=== PATIENT | female | born 1965 | race Caucasian/White ===

== ENCOUNTER → 2022-04-04 | Outpatient (CLI) | payer BC, MEDICARE ==
--- NOTE | 2022-04-04 16:56 | P.SLEEP ---
History of Present Illness H&P Date: 04/04/22 This is a 56-year-old female patient was referred to me for sleep apnea evaluation. She has a complicated history of multiple sclerosis and questionable nocturnal seizures. Note that the patient was originally diagnosed having multiple sclerosis and this was also confirmed by the neurologist carolin kan. She was treated for a brief period of time and she is currently on no treatment. She has chronic issues with numbness and tingling and pain and vision disturbances and this been going on for many years. At the same time, she has chronic fatigue and sleepiness and for that reason the patient was referred to me for a sleep apnea evaluation. She claims that she has had 2 episodes of nocturnal seizures and this was witnessed by her daughter. The patient was not aware of this. Had EEGs have not indicated any daytime seizure activity. She is not taking any form of antiepileptic medication at this point in time. The patient did not have any nighttime confusion or arousal because of any motor activity, biting of the tongue, urinary incontinence, etc. The patient denies having any snoring. She denies stopping breathing during the night. No issues with nocturia. No issues with grinding of the teeth. Denies waking up choking or gasping for air. Denies having any processes and lower extremities. She goes to bed at around 10 PM and awakes at 7 AM in the morning. She smokes cigarettes. No substance abuse although she has occasionally smoked marijuana. No septal alcoholism. No sleep walking. No sleep talking. Her sleep is fragmented as the patient has chronic pain and she wakes up frequently in the middle of the night. Her current [place] score is at 6. Review of Systems Constitutional: Reports chronic pain, Reports daytime sleepiness, Reports fatigue, Reports weakness Eyes: bilateral blurred vision, denies as per HPI, denies bulging eye, denies decreased vision, denies diplopia, denies discharge, denies dry eye, denies irritation, denies itching, denies pain, denies photophobia, denies loss of peripheral vision, denies loss of vision, denies tunnel vision/blind spots Ears: deny: decreased hearing, ear discharge, earache, tinnitus Ears, nose, mouth and throat: Reports as per HPI Breasts: absent: as per HPI, change in shape, gynecomastia, masses, nipple discharge, pain, skin changes, swelling Breasts: Reports as per HPI Cardiovascular: Reports as per HPI Respiratory: Reports as per HPI Gastrointestinal: Reports as per HPI Genitourinary: Reports as per HPI Menstruation: Reports as per HPI Musculoskeletal: Reports as per HPI, Reports arm numbness/tingling, Reports limitation of motion, Reports muscle weakness, Reports myalgias, Reports neck pain Musculoskeletal: absent: ankle pain, ankle stiffness, ankle swelling, as per HPI, elbow pain, elbow stiffness, elbow swelling, foot pain, foot stiffness, foot swelling, hand pain, hand stiffness, hand swelling, hip pain, hip stiffness, hip swelling, knee pain, knee stiffness, knee swelling, shoulder pain, shoulder stiffness, shoulder swelling, wrist pain, wrist stiffness, wrist swelling Integumentary: Reports as per HPI Neurological: Reports convulsions, Reports migraines, Reports motor disturbance, Reports numbness, Reports paresthesias, Reports weakness, Reports visual changes Psychiatric: Reports as per HPI Endocrine: Reports as per HPI Hematologic/Lymphatic: Reports as per HPI Allergic/Immunologic: Reports as per HPI Past Medical History Additional Past Medical History / Comment(s): Multiple sclerosis, seizure disorder and this is questionable, depression, hypothyroidism, chronic pain, hyperlipidemia Additional Past Surgical History / Comment(s): Neck fusion, lower lumbar fusion, 3, carpal tunnel release Medications and Allergies Home Medications and Allergies Comment(s): Home medications include Cymbalta 90 mg by mouth daily, levothyroxin 125 g by mouth daily, Percocet 7.5 on an as-needed basis, gabapentin 100 mg by mouth 3 times a day, tizanidine 4 mg by mouth daily, Lipitor 20 mg by mouth daily, melatonin 10 mg at bedtime. Physical Exam BP is 122/81, pulse is 83, respirations 16, temperature 97.0, oxygen saturation 95% on room air, a [place] score is at 4, body mass index is 29.9 The patient appeared well nourished and normally developed. Vital signs as documented. Head exam is unremarkable. No scleral icterus or corneal arcus noted. Neck is without jugular venous distension, thyromegaly, or carotid bruits. Carotid upstrokes are brisk bilaterally. Lungs are clear to auscultation and percussion. Cardiac exam reveals the PMI to be normally sized and situated. Rhythm is regular. First and second heart sounds normal. No murmurs, rubs or gallops. Abdominal exam reveals normal bowel sounds, no masses, no organomegaly and no aortic enlargement. Extremities are nonedematous and both femoral and pedal pulses are normal.Examination of the skin revealed no evidence of significant rashes, suspicious appearing nevi or other concerning lesions.Neurologically, the patient is awake and alert and the patient does not have any focal neurological deficit. Cranial nerves are essentially intact. Assessment and Plan Plan: Chronic fatigue/sleepiness, most likely related to her comorbid conditions. Underlying obstructive sleep apnea or nocturnal seizure is doubtful based on the reported history. We'll investigate this patient further. Note that the patie nt has no snoring, no witnessed apneas and she is averaging a good 7 hours of sleep without any major difficulties. No indication for any chronic insomnia. Note that the patient has chronic pain which is not explained on the on the basis of MS. Consider fibromyalgia. The patient is taking pain killers. Pain has segment of this patient. The patient has frequent nocturnal arousals due to ongoing issues with pain. Multiple sclerosis Questionable nocturnal seizures on 2 separate occasions, currently not receiving any form of antiepileptic medications Depression Hypothyroidism Chronic pain Hyperlipidemia Plan Will obtain ischemic polysomnogram to evaluate this patient's sleep quality, characteristics, architecture, and decide if any further treatment is needed. In general, overall clinical suspicion for obstructive sleep apnea is extremely low in this patient. We will look at the results of the polysomnogram and get back to the neurologist and treat accordingly. We'll continue to follow. Sleep Note - Sleep Note Sleep Note: Temperature: Pulse Rate: Respiratory Rate: Blood Pressure: SpO2: Height: Weight: BMI: Neck Circumference:
== END ==
LOC: SLEEP 13:56
PROVIDERS: ATTEND Internal Medicine Critical Care Medicine
DX: M79.7 Fibromyalgia (principal); E03.9 Hypothyroidism, unspecified; E78.5 Hyperlipidemia, unspecified; G89.29 Other chronic pain; G35 Multiple sclerosis; F32.A Depression, unspecified
CPT/HCPCS: 99202